=== PATIENT | female | born 1995 | race American Indian/Alaskan Native ===

== ENCOUNTER 2023-06-26 14:08 | Emergency (ER) | payer SELFPAY ==
[2023-06-26 14:22] VITALS: BP 156/60; PULSE 66; RESP 20; TEMP 36.7; O2SAT 100; BMI 46.7
--- NOTE | 2023-06-26 14:23 | ED.GENADULT ---
HPI - General Adult General Chief complaint: Abdominal Pain Stated complaint: hernia abd pain Time Seen by Provider: 06/26/23 17:46 Source: patient Mode of arrival: ambulatory Limitations: no limitations History of Present Illness HPI narrative: 28-year-old female presents emergency department with recurrent abdominal pain. Patient moved here from [place] a few months back has had multiple hernia for years and she feels like it is getting a bit larger. She does not have a surgeon here she states she does not have insurance she denies fevers chills cough she is eating and drinking normally. Related Data Allergies Allergy/AdvReac Type Severity Reaction Status Date / Time amphetamine [From Adderall] AdvReac Headache Verified 06/26/23 14:25 aspirin [ASA] AdvReac Unknown Verified 06/26/23 14:25 dextroamphetamine AdvReac Headache Verified 06/26/23 14:25 [From Adderall] Review of Systems Review of Systems: Review of systems: General: Patient denies any fever chills recent illness or falls Musculoskeletal: Denies back pain or body aches or other injuries HEENT: denies headache, runny nose, ear pain Respiratory: denies shortness of breath, cough Cardiovascular: no chest pain or palpitations : denies dysuria, frequency Abdomen: no nausea vomiting she does have intermittent abdominal pain Extremities: no swelling, no pain Skin: no diaphoresis Yes all other systems are reviewed and are negative PMFSH Social History Social History Advance Directives: No Advance Directives Information Provided: No Physical Exam ED Vital Signs: Vital Signs - 24 hr 06/26/23 14:22 Temperature 98.1 F Pulse Rate 66 Respiratory Rate 20 Blood Pressure 156/60 H Pulse Oximetry 100 Oxygen Delivery Method Room Air BMI result Body Mass Index 46.7 General: Well-appearing well-nourished in no signs of distress HEENT: Normocephalic atraumatic Neck: No signs of JVD, no masses no tenderness or lymphadenopathy Cardiovascular: Regular rate and rhythm Respiratory: Clear to auscultation bilaterally Abdomen: Soft nontender no masses hernia is reducible Extremities: Normal pedal pulses no signs of edema Skin: Dry warm no rashes Back: No tenderness full ROM Course Course Course Narrative: Patient comes with 2 complaints, 1st complaint is a reducible hernia in her umbilicus which is getting larger and larger and she is able to reduce it but is very uncomfortable and it pops right back out, next complaint is some feeling of nausea and dyspepsia which happens frequently and resolves on its own, she is not vomiting no diarrhea no fever Lab sent This is rapid medical exam in triage pending full evaluation by provider in the ER for full history and physical, review of all results and dispo Medical Decision Making Medical Decision Making [facility] Narrative: Is eating drinking as normal vitals and the hernia is easily reducible I will give the patient outpatient follow-up with surgery. Patient has had this for 4 years I do not think this is anything life threatening I feel comfortable discharging home. Differential Diagnosis Differential Diagnoses: The differential diagnosis associated with the presentation includes Reducible hernia abdominal pain bowel obstruction Lab Data [facility] Lab Attestation statement: I reviewed the patient's lab results. 06/26/23 14:34 06/26/23 14:34 Labs: Lab Results 06/26/23 Range/Units 14:34 WBC 8.3 (4.8-10.8) X10*3/uL RBC 4.49 (4.20-5.50) X10*6/uL Hgb 12.5 (12.0-16.0) g/dl Hct 38.6 (37.0-47.0) % MCV 86.0 (80.0-98.0) fL MCH 27.8 (27.0-33.0) pg MCHC 32.4 (31.0-35.0) g/dl RDW 13.1 (11.0-16.0) % Plt Count 340 (160-400) X10*3/uL MPV 9.2 L (9.4-12.3) fL Immature Gran % (Auto) 0.4 (0.0-0.4) % Neut % (Auto) 61.2 (45-73) % Lymph % (Auto) 29.9 (20-40) % [place] % (Auto) 6.0 (2-11) % Eos % (Auto) 1.7 (0-4) % Baso % (Auto) 0.8 (0-2) % Lymph # (Auto) 2.5 (1.2-4.9) X10*3/uL [place] # (Auto) 0.5 (0.1-1.2) X10*3/uL Eos # (Auto) 0.1 (0.0-0.4) X10*3/uL Baso # (Auto) 0.1 (0.0-0.2) X10*3/uL Abs Immat Gran (auto) 0.03 (0.00-0.03) X10*3/uL Absolute Neuts (auto) 5.1 (2.0-8.3) x10*3/uL Absolute Nucleated RBC 0.000 (0.0-0.012) X10*3/uL Nucleated RBC % (auto) 0.0 (0.0-0.2) /100WBC Sodium 140 (135-145) mmol/L Potassium 3.7 (3.3-5.1) mmol/L Chloride 109 H (96-108) mmol/L Carbon Dioxide 26 (22-29) mmol/L Anion Gap 9 L (12-20) BUN 13 (9-16) mg/dL Creatinine 0.66 (0.5-1.4) mg/dL Estim Creat Clear Calc 153.0 Estimated GFR > 60 Random Glucose 88 (60-115) mg/dL Calcium 9.2 (8.4-10.2) mg/dL Total Bilirubin 0.4 (0.0-1.0) mg/dL Direct Bilirubin 0.2 (0.0-0.5) mg/dL AST 20 (5-31) U/L ALT 15 (0-31) U/L Alkaline Phosphatase 44 (39-117) U/L Total Protein 7.4 (6.5-8.0) g/dL Albumin 4.0 (3.5-5.0) g/dL Lipase 19 (8-78) U/L Urine Color Yellow Urine Appearance Clear Urine pH 7.0 (5.0-9.0) Ur Specific [employer] Mdl 1.020 (1.005-1.025) Urine Protein Negative (Neg-Trace) mg/dL Urine Glucose (UA) Negative (Negative) mg/dL Urine Ketones Negative (Negative) mg/dL Urine Blood Trace H (Negative) Urine Nitrite Negative (Negative) Ur Leukocyte Esterase Negative (Negative) Urine RBC 0-2 (0-2) /HPF Urine WBC 0-5 (0-5) /HPF Ur Squamous Epith Cells 0-2 (0-2) /HPF Urine Bacteria None Seen (None Seen) Hyaline Casts 0-2 (0-2) /LPF Urine Test NEGATIVE (NEGATIVE) Discharge Plan Discharge Clinical Impression: Hernia, umbilical Patient Disposition: Home, Self-Care Instructions: Umbilical Hernia (ED) Referrals: Janes Hager MD [Physician] - (Is seen today for your hernia. You had labs drawn remarkable. Please call follow-up.)
[2023-06-26 14:39] LABS: MANUAL DIFF FLAG NO
[2023-06-26 14:42] LABS: Appearance Urine Clear; Basophils Absolute Auto 0.1 X10*3/uL (0.0-0.2); Basophils Percent Auto 0.8 % (0-2); Color Urine Yellow; Eosinophils Absolute Auto 0.1 X10*3/uL (0.0-0.4); Eosinophils Percent Auto 1.7 % (0-4); Glucose Urine UA Negative (Negative); Hematocrit 38.6 % (37.0-47.0); Hemoglobin 12.5 g/dl (12.0-16.0); Imm Gran Abs Auto 0.03 X10*3/uL (0.00-0.03); Imm Gran Pct Auto 0.4 % (0.0-0.4); Leukocyte Esterase Urine Negative (Negative); Lymphocytes Absolute Auto 2.5 X10*3/uL (1.2-4.9); Lymphocytes Percent Auto 29.9 % (20-40); Mean Corpuscular HGB Conc 32.4 g/dl (31.0-35.0); Mean Corpuscular Hemoglobin 27.8 pg (27.0-33.0); Mean Platelet Volume 9.2 fL (9.4-12.3); Monocytes Absolute Auto 0.5 X10*3/uL (0.1-1.2); Neutrophils Absolute Auto 5.1 x10*3/uL (2.0-8.3); Neutrophils Percent Auto 61.2 % (45-73); Nitrite Urine Negative (Negative); Platelet Count 340 X10*3/uL (160-400); Red Blood Count 4.49 X10*6/uL (4.20-5.50); Red Cell Distribution Width 13.1 % (11.0-16.0); UMIC TRIGGER UACC YES; Urine Blood Trace (Negative); Urine Ketones Negative (Negative); Urine Protein Negative (Neg-Trace); White Blood Count 8.3 X10*3/uL (4.8-10.8)
[2023-06-26 14:44] LABS: Bacteria Urine None Seen (None Seen); Hyaline Casts Urine 0-2 /LPF (0-2); RBC Urine 0-2 /HPF (0-2); Squamous Epithelial Cell Urine 0-2 /HPF (0-2); UPreg QC Valid YES; Urine Pregnancy NEGATIVE (NEGATIVE); WBC Urine 0-5 /HPF (0-5)
[2023-06-26 14:55] LABS: Alanine Aminotransferase 15 U/L (0-31); Alkaline Phosphatase 44 U/L (39-117); Anion Gap 9 (12-20); Aspartate Amino Transferase 20 U/L (5-31); Bilirubin Direct 0.2 mg/dL (0.0-0.5); Bilirubin Total 0.4 mg/dL (0.0-1.0); Blood Urea Nitrogen 13 mg/dL (9-16); Calcium 9.2 mg/dL (8.4-10.2); Carbon Dioxide 26 mmol/L (22-29); Chloride 109 mmol/L (96-108); Estimated Glomerular Filt Rate > 60; Glucose Random 88 mg/dL (60-115); Lipase 19 U/L (8-78); Potassium 3.7 mmol/L (3.3-5.1); Sodium 140 mmol/L (135-145); Total Protein 7.4 g/dL (6.5-8.0)
== END 2023-06-26 18:29 | disposition home or self-care (01) ==
PROVIDERS: Physician Assistant Medical; Emergency Provider Student in an Organized Health Care Education/Training Program
DX: K42.9 Umbilical hernia without obstruction or gangrene (principal); Z79.899 Other long term (current) drug therapy
CPT/HCPCS: 36415; 80048; 80076; 81001; 81025; 83690; 85025; 99282; 99283

== ENCOUNTER 2023-10-02 10:44 | Outpatient (AMB) | payer OTHER, SELFPAY ==
--- NOTE | 2023-10-02 11:00 | MHC.OFFVIS ---
Intake Vital Signs 10/02/23 11:06 Height 5 ft 2 in Weight 268 lb BMI 49.0 BP 136/74 Blood Pressure Location Lt brachial Position Sitting Pulse 66 Intake Visit Reasons: umbilical henia Intake Note: Patient is seen in office for ER follow up visit, following umbilical hernia. Pt c/o: onset few yrs, has increase in size, hard to the touch, reducible, nausea, vomit, denies diarrhea or constipation, no imaging done ER:06/26/23 Rn Critical Care Required: No Accompanied by: Other Relationship Allergies amphetamine [From Adderall] Adverse Reaction (Verified 10/02/23 11:02) Headache aspirin [ASA] Adverse Reaction (Verified 10/02/23 11:02) Unknown dextroamphetamine [From Adderall] Adverse Reaction (Verified 10/02/23 11:02) Headache HPI HPI Comments History of Present Illness Details 28-year-old female patient presenting with her with complaints of an umbilical hernia. She was seen in the emergency department recently with increased abdominal pain and found to have a reducible umbilical hernia. She reports that the pain has been increasing over the past 4 years and this is been affecting her mental health. She is also gaining weight because she is unable to exercise. 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 She reports nausea, vomiting, but denies fever or chills. She denies previous abdominal surgeries. [facility] Medical History (Updated 10/02/23 @ 11:18 by Paco Maher MD) Hernia, umbilical Family History Maternal Grandfather Pancreatic cancer, Onset Age: 58 Maternal Aunt Breast cancer, Onset Age: 58 Social History Alcohol intake: never Patient Tobacco Use Status: Former Tobacco user Review of Systems Const All systems reviewed & are unremarkable except as noted in HPI and below Denies chills, Denies fever(s), Denies headache(s), Denies poor appetite and Denies weakness ENT Denies headache(s) Card Denies chest pain, Denies irregular heart rhythm, Denies palpitations and Denies dyspnea Resp Denies cough, Denies excessive phlegm production and Denies dyspnea GI Reports abdominal pain, Denies bloating, Denies change in bowel habits, Denies constipation, Denies heartburn, Denies diarrhea, Reports nausea and Reports vomiting Denies urinary frequency Musc Denies back pain, Denies muscle weakness and Denies numbness Skin/Breast Denies changing lesions and Denies unusual bruising Neuro Denies headache(s), Denies numbness, Denies paresthesias and Denies weakness Psych Denies anxiety and Denies depression Endo Denies palpitations Shaggy/Lymph Denies lymphadenopathy Physical Exam Const General: cooperative and no acute distress Nutritional Appearance: well nourished Orientation/consciousness: patient oriented x3 Limitations: no limitations HEENT Head: Yes normocephalic and Yes atraumatic Ears: hearing grossly normal bilaterally Resp Effort & Inspection: normal respiratory effort, no audible wheezes, no cough and no respiratory distress Cardio Jugular venous distension: no JVD GI Inspection: Yes normal to inspection and Yes obesity Palpation (GI): Soft to palpation, nontender, no guarding, not rigid and Hernia present umbilical (Reducible, 2 cm diameter.) Skin Other: Warm, dry, no rash Neuro General: patient oriented x3 Extrem General: Yes no clubbing, cyanosis or edema Assessment & Plan Assessment & Plan (1) Hernia, umbilical: Code(s): K42.9 - Umbilical hernia without obstruction or gangrene Qualifiers: Obstruction and gangrene presence: without obstruction or gangrene Qualified Code(s): K42.9 - Umbilical hernia without obstruction or gangrene Plan 28-year-old female patient presenting with a reducible umbilical hernia, 2 cm diameter causing increased discomfort, nausea and vomiting. Hernias confirmed on physical examination. I recommended repair of this umbilical hernia with mesh and after discussion of the procedure, risks, and alternatives, she consents to the surgery. She will be scheduled as a short-stay surgery at her earliest convenience. Coding Level of Care Code New Pt Level 4 (54040) Diagnoses Umbilical hernia without obstruction and without gangrene K42.9 Obstruction and gangrene presence: without obstruction or gangrene
[2023-10-02 11:06] VITALS: BP 136/74; PULSE 66; BMI 49.0
== END 2023-10-02 11:31 | disposition home or self-care (01) ==
PROVIDERS: Visit Provider Surgery
DX: K42.9 Umbilical hernia without obstruction or gangrene (principal)
CPT/HCPCS: 99204

== ENCOUNTER → 2023-10-02 10:44 | Outpatient (BNVA) | payer SELFPAY | PROVIDERS: Visit Provider Surgery ==

== ENCOUNTER 2023-10-08 05:52 | Day surgery (SDC) | payer OTHER, SELFPAY ==
--- NOTE | 2023-10-07 08:46 | HO.ANESPROP2 ---
HPI - Anesthesia Eval Consult details Narrative: 28yo F for Repair Hernia Umbilical Reducible with Mesh PMFSH Active Problems Active Problems: All Active Problems (Updated 10/02/23 @ 11:18 by Paco Maher MD) Hernia, umbilical (Acute) Psoriatic arthritis (Acute) Past Medical History Medical History (Updated 10/02/23 @ 11:18 by Paco Maher MD) Hernia, umbilical Family History Family History Maternal Grandfather Pancreatic cancer, Onset Age: 58 Maternal Aunt Breast cancer, Onset Age: 58 Social History Social History Alcohol intake: never Patient Tobacco Use Status: Former Tobacco user Meds Allergies Allergy/AdvReac Type Severity Reaction Status Date / Time amphetamine [From Adderall] AdvReac Headache Verified 10/02/23 11:02 aspirin [ASA] AdvReac Unknown Verified 10/02/23 11:02 dextroamphetamine AdvReac Headache Verified 10/02/23 11:02 [From Adderall] Home Medications Medication Instructions Recorded Confirmed Last Taken Type No Known Home Meds 10/02/23 10/02/23 Unknown History Exam Pertinent Lab Results Pertinent Lab Results: Laboratory Tests 06/26/23 14:34 WBC 8.3 Hgb 12.5 Hct 38.6 Plt Count 340 Sodium 140 Potassium 3.7 Chloride 109 H Carbon Dioxide 26 BUN 13 Creatinine 0.66
[2023-10-08] VITALS (8 sets, daily range): BP systolic 112–128; BP diastolic 60–92; PULSE 61–73; RESP 20; TEMP 36.4–36.6; O2SAT 95–100; BMI 48.5
[2023-10-08 06:07] LABS: UPreg QC Valid YES; Urine Pregnancy NEGATIVE (NEGATIVE)
[2023-10-08] MEDS: Lactated Ringers 1,000 ML 100 ML IVCONT (06:23)
--- NOTE | 2023-10-08 07:19 | MHC.SHP ---
Pre-Procedural Eval Section A - 24 Hr Update-Section A only Date of Service: 10/08/23 The patient is an INPATIENT: No Changes since office visit: Yes Patient answered all questions; No Cold of Flu in the past 2 weeks, No New Medical Problems and No Changes in Medication The patient has been examined within 24 hours of the surgical procedure. The History & Physical has been completed within 30 days and I have reviewed it.: Yes Section B - Complete if H&P > 30 days Chief Complaint: Umbilical hernia without obstruction or gangrene Allergies: Allergies Allergy/AdvReac Type Severity Reaction Status Date / Time amphetamine [From Adderall] AdvReac Headache Verified 10/02/23 11:02 aspirin [ASA] AdvReac Unknown Verified 10/02/23 11:02 dextroamphetamine AdvReac Headache Verified 10/02/23 11:02 [From Adderall] Plan Diagnosis/Plan: Unchanged I have reviewed the history and physical and performed a pertinent physical examination on my patient. No changes have occurred unless specified. Time Spent With Patient Time: Total time managing care of this patient today ____ minutes.
--- NOTE | 2023-10-08 07:20 | P.CONAN_ITS ---
[facility] Active Problems Active Problems: All Active Problems (Updated 10/08/23 @ 06:11 by Julia Broussrad RN) Psoriatic arthritis (Acute) Hernia, umbilical (Acute) Past Medical History Medical History (Updated 10/08/23 @ 06:11 by Julia Broussard RN) Anxiety Hernia, umbilical Family History Family History Maternal Grandfather Pancreatic cancer, Onset Age: 58 Maternal Aunt Breast cancer, Onset Age: 58 Family history of problems with anesthesia: No Surgical History Surgical History (Updated 10/08/23 @ 06:11 by Julia Broussard RN) History of ankle surgery History of Problems with Anesthesia: No Social History Social History Alcohol intake: never Patient Tobacco Use Status: Former Tobacco user Tobacco use type: Smokeless Tobacco Years Smoked: 10/08 Are you DNR?: No Advance Directives: No Advance Directives Information Provided: Yes Recently lost weight without trying: No Meds Allergies Allergy/AdvReac Type Severity Reaction Status Date / Time amphetamine [From Adderall] AdvReac Headache Verified 10/02/23 11:02 aspirin [ASA] AdvReac Unknown Verified 10/02/23 11:02 dextroamphetamine AdvReac Headache Verified 10/02/23 11:02 [From Adderall] Active Medications: Current Medications Lactated Ringer's (Lr) 1,000 mls @ 100 mls/hr IVCONT .Q10H SUZIE Last Admin: 10/08/23 06:23 Dose: 100 mls/hr Home Medications Medication Instructions Recorded Confirmed Last Taken Type No Known Home Meds 10/02/23 10/02/23 Unknown History Exam Height,Weight and Vital Signs: Height 5 ft 2 in Weight 120.338 kg Last Vital Signs Temp 98 F 10/08/23 06:09 Pulse 73 10/08/23 06:09 Resp 20 10/08/23 06:09 BP 128/62 10/08/23 06:09 Pulse Ox 97 10/08/23 06:09 O2 Del Method Room Air 10/08/23 06:09 Pertinent Lab Results Pertinent Lab Results: Laboratory Tests 10/08/23 06:01 Urine Test NEGATIVE Airway Mallampati Class: II TM Dist: >3cm Neck ROM: Full Heart: rrr Lungs: clear Assessment and Plan Final Anesthetic Review Family History of Problems with Anesthesia: No History of Problems with Anesthesia: No NPO: Yes ASA Class: II Final Preanesthetic Review: No Changes in Pt Med Stat, Meds/Allgs Chart Reviewed, Consent Obtained/Reviewed and Anes Risks/Benef Reviewed Patient Risk: Intermediate Procedure Risk: Low Anesthetic Plan Anesthetic Plan: GA Disposition: Standard PACU
--- NOTE | 2023-10-08 08:35 | W.PM.OPN ---
Operative Note Operative Note Date of Service: 10/08/23 Narrative: Preoperative diagnosis: Umbilical hernia, reducible Postoperative diagnosis: Same Procedure: Repair of reducible umbilical hernia with mesh Surgeon: Paco Maher MD [employer] Hand: Mary Mathew PA-C, EMELY Wetzel Anesthesia: General endotracheal Indications for procedure: 28-year-old presenting with a painful umbilical hernia Operative findings: 2 cm fascial defect, reducible umbilical hernia Specimen: None Estimated blood loss: 2 mL Complications: None Procedure details: Patient was brought to the OR and placed in a supine position. After administering general anesthesia the patient's abdomen was prepped with ChloraPrep and draped in a sterile fashion. A surgical time-out was called the consent confirmed. Patient received preoperative antibiotics and Venodyne boots were in place. Local anesthesia was infiltrated around the umbilicus. A curvilinear incision was made in a transverse fashion above the umbilicus. This was carried out through subcutaneous tissue up to the hernia sac. The umbilical skin was lifted off the fascia using electrocautery. The hernia sac was then dissected down to the fascia circumferentially and the contents reduced into the abdominal cavity. A preperitoneal space was then created with electrocautery and sharp dissection. Hemostasis was assured using electrocautery. The fascial defect measured approximately 2 cm in diameter. A 6.4 cm round Ventralex mesh was then obtained. Deployed into the abdominal preperitoneal space using a parachute method in 4 quadrants with 0 Tycron sutures. The fascia was then closed over the mesh incorporating the mesh in the closure using [id number] Tycron sutures. Wounds were then irrigated with saline solution and suctioned dry. Hemostasis was assured. Umbilical skin was then reattached to the fascia using a 3-0 Polysorb suture. Dermis was reapproximated using interrupted 3-0 Polysorb sutures. Skin was closed using a running subcuticular 4-0 Polysorb suture. Steri-Strips, 4 x 4 gauze and Tegaderm were then applied. The patient tolerated the procedure well. Sponge, instrument, and needle counts reported as correct. The patient was transferred to PACU in stable condition.
[2023-10-08] MEDS: fentaNYL citrate/PF 100 MCG/2 ML VIAL 25 MCG IVPUSH ×2 (09:10→09:20)
[2023-10-08] MEDS: oxyCODONE HCl Immed Release 5 MG TABLET PO (09:10)
== END 2023-10-08 11:03 | disposition home or self-care (01) ==
PROVIDERS: Nurse Practitioner; Visit Provider Surgery
PROC: (CPT 49591; principal; 2023-10-08 07:30)
DX: K42.9 Umbilical hernia without obstruction or gangrene (principal); Z88.8 Allergy status to other drugs, medicaments and biological substances; Z87.891 Personal history of nicotine dependence
CPT/HCPCS: 49591; 81025; C1781; J0131; J0330; J0665; J0690; J1100; J2250; J2405; J2704; J3010

== ENCOUNTER → 2023-10-08 05:52 | Outpatient (BNV) | payer OTHER, SELFPAY | PROVIDERS: Visit Provider Surgery | DX: K42.9 Umbilical hernia without obstruction or gangrene (principal) | CPT/HCPCS: 49591 ==

== ENCOUNTER 2023-10-17 11:36 | Outpatient (AMB) | payer OTHER, SELFPAY ==
--- NOTE | 2023-10-17 11:39 | A.OFFVIS_ITS ---
Intake Vital Signs 10/17/23 11:46 Weight 262 lb BP 142/82 H Blood Pressure Location Rt brachial Position Sitting Pulse 78 Intake Visit Reasons: S/p umbilical hernia repair Intake Note: This patient present for a post-op assessment status post umbilical hernia repair. Patient c/o; reports burning sensation left abdomen. 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 She reports some incisional soreness but denies nausea, vomiting, diarrhea or constipation. She denies any bleeding or discharge from the incision however the plastic dressing remains in place. [facility] Medical History Anxiety Hernia, umbilical Surgical History H/O umbilical hernia repair (10/08/23) History of ankle surgery Family History Maternal Grandfather Pancreatic cancer, Onset Age: 58 Maternal Aunt Breast cancer, Onset Age: 58 Social History Alcohol intake: never Patient Tobacco Use Status: Former Tobacco user Tobacco use type: Smokeless Tobacco Years Smoked: 0510/08 Physical Exam Vital Signs: Last Vital Signs Pulse 78 10/17/23 11:46 BP 142/82 H 10/17/23 11:46 Const General: comfortable Nutritional Appearance: well nourished Orientation/consciousness: patient oriented x3 Resp Effort & Inspection: normal respiratory effort GI Other: Incision in the umbilicus is clean, dry, and intact. Dressings were removed and wounds found to be well healed. No hernia noted with Valsalva maneuvers. Neuro General: patient oriented x3 Extrem Other: No edema Assessment & Plan Assessment & Plan (1) Hernia, umbilical: Code(s): K42.9 - Umbilical hernia without obstruction or gangrene Qualifiers: Obstruction and gangrene presence: without obstruction or gangrene Qualified Code(s): K42.9 - Umbilical hernia without obstruction or gangrene Plan 20-year-old female patient status post repair of an umbilical hernia with mesh. She tolerated the procedure well and her wounds are healing nicely. She should continue to avoid lifting greater than 10 lb for the next 4 weeks. I have asked her to return to the office at that time for wound check. She may return to work as of 10/20/2023 with no lifting greater than 10 lb. Coding Level of Care Code Global (76878) Diagnoses Umbilical hernia without obstruction and without gangrene K42.9 Obstruction and gangrene presence: without obstruction or gangrene
[2023-10-17 11:46] VITALS: BP 142/82; PULSE 78
== END 2023-10-17 11:57 | disposition home or self-care (01) ==
PROVIDERS: Visit Provider Surgery
DX: K42.9 Umbilical hernia without obstruction or gangrene (principal)
CPT/HCPCS: 99212

== ENCOUNTER → 2023-10-17 11:36 | Outpatient (BNVA) | payer OTHER, SELFPAY | PROVIDERS: Visit Provider Surgery ==

== ENCOUNTER 2023-11-13 13:15 | Outpatient (AMB) | payer OTHER, SELFPAY ==
--- NOTE | 2023-11-13 13:19 | A.OFFVIS_ITS ---
Intake Vital Signs 11/13/23 13:24 Height 5 ft 2 in Weight 261 lb BMI 47.7 BP 146/81 H Blood Pressure Location Lt brachial Position Sitting Pulse 68 Intake Visit Reasons: S/p umbilical hernia repair, 1 mo follow up Intake Note: Patient is seen in office for one month follow up visit, post umbilical hernia repair. Pt c/o: at times feels some stabbing in the area, mostly after working, out of breath at times, denies any other concerns Esthetician Required: No Accompanied by: Self / Same As Patient Allergies amphetamine [From Adderall] Adverse Reaction (Verified 11/13/23 13:26) Headache aspirin [ASA] Adverse Reaction (Verified 11/13/23 13:26) Unknown dextroamphetamine [From Adderall] Adverse Reaction (Verified 11/13/23 13:) Headache Medication List - Last Reconciled 11/13/23 by Paco Maher MD No Known Home Meds HPI HPI Comments History of Present Illness Details Patient returns 1 month following repair of her umbilical hernia with mesh. She tolerated the procedure well and her wounds are healing nicely. She occasionally has some sharp discomfort when doing heavy lifting but generally feels well. [facility] Medical History Anxiety Hernia, umbilical Surgical History H/O umbilical hernia repair (10/08/23) History of ankle surgery Family History Maternal Grandfather Pancreatic cancer, Onset Age: 58 Maternal Aunt Breast cancer, Onset Age: 58 Social History Alcohol intake: never Patient Tobacco Use Status: Former Tobacco user Tobacco use type: Smokeless Tobacco Years Smoked: 0510/08 Physical Exam Vital Signs: Last Vital Signs Pulse 68 11/13/23 13:24 BP 146/81 H 11/13/23 13:24 BMI result Body Mass Index 47.7 Const General: comfortable Nutritional Appearance: well nourished Orientation/consciousness: patient oriented x3 Resp Effort & Inspection: normal respiratory effort GI Other: Umbilical incision is clean, dry, and intact. No hernias noted with Valsalva maneuvers. Neuro General: patient oriented x3 Extrem Other: No edema Assessment & Plan Assessment & Plan (1) Hernia, umbilical: Code(s): K42.9 - Umbilical hernia without obstruction or gangrene Qualifiers: Obstruction and gangrene presence: without obstruction or gangrene Qualified Code(s): K42.9 - Umbilical hernia without obstruction or gangrene Plan Patient returns 1 month following repair of an umbilical hernia with mesh. She tolerated the procedure well the wounds are healing nicely. She may resume normal activity without restriction and should follow up as needed. Coding Level of Care Code Global (77670) Diagnoses Umbilical hernia without obstruction and without gangrene K42.9 Obstruction and gangrene presence: without obstruction or gangrene
[2023-11-13 13:24] VITALS: BP 146/81; PULSE 68; BMI 47.7
== END 2023-11-13 13:38 | disposition home or self-care (01) ==
PROVIDERS: Visit Provider Surgery
DX: K42.9 Umbilical hernia without obstruction or gangrene (principal)
CPT/HCPCS: 99212

== ENCOUNTER → 2023-11-13 13:15 | Outpatient (BNVA) | payer OTHER, SELFPAY | PROVIDERS: Visit Provider Surgery ==

== ENCOUNTER 2023-12-25 09:29 | Emergency (ER) | payer OTHER, SELFPAY ==
[2023-12-25 09:40] VITALS: BP 144/61; PULSE 58; RESP 16; O2SAT 98; BMI 47.7
--- NOTE | 2023-12-25 09:53 | ED.GENADULT ---
HPI - General Adult General Chief complaint: General Medical Stated complaint: control broken in half Time Seen by Provider: 12/25/23 09:52 Source: patient Mode of arrival: ambulatory Limitations: no limitations History of Present Illness HPI narrative: Patient is a 28-year-old female with history of psoriatic arthritis presenting to the emergency department requesting that her Nexplanon implant be removed from her left upper arm. States that she has noted that it has been broken for the past several months. States that it is uncomfortable, also complains that her periods are irregular and is tearful, requesting that it be removed immediately. Denies any chest pain, palpitations, dyspnea. She reports that she has been to [facility] and was told they could not remove it there and referred her to the emergency department. States she recently moved here and does not have an MARKING ROOM SUPERVISOR in this area. complaint: left upper arm pain Onset (ago): month(s) Location: left and upper extremity Severity: mild Pain Consistency: colicky Associated symptoms: denies other symptoms Treatments prior to arrival: none Related Data Home Medications ?Medication ?Instructions ?Recorded ?Confirmed No Known Home Meds 11/13/23 11/13/23 Allergies Allergy/AdvReac Type Severity Reaction Status Date / Time amphetamine [From Adderall] AdvReac Headache Verified 12/25/23 09:44 aspirin [ASA] AdvReac Unknown Verified 12/25/23 09:44 dextroamphetamine AdvReac Headache Verified 12/25/23 09:44 [From Adderall] Review of Systems Review of Systems: As per HPI. Yes all other systems are reviewed and are negative Constitutional: Constitutional: Reports as per HPI [facility] Past Medical History Medical History Anxiety Hernia, umbilical Surgical History H/O umbilical hernia repair (10/08/23) History of ankle surgery Family History Family History Maternal Grandfather Pancreatic cancer, Onset Age: 58 Maternal Aunt Breast cancer, Onset Age: 58 Social History Social History Alcohol intake: never Patient Tobacco Use Status: Former Tobacco user Tobacco use type: Smokeless Tobacco Years Smoked: 10/08 Advance Directives: No Physical Exam ED Vital Signs: Vital Signs - 24 hr 12/25/23 09:40 Pulse Rate 58 Respiratory Rate 16 Blood Pressure 144/61 H Pulse Oximetry 98 Oxygen Delivery Method Room Air BMI result Body Mass Index 47.7 Vital signs have been reviewed and appear to be correct. Blood pressure elevated. Heart rate normal. Respiratory rate normal. Temperature normal. Oxygen saturation normal. Const General: cooperative, healthy appearing and no acute distress Orientation/consciousness: oriented to person, oriented to place, oriented to time and patient oriented x3 Limitations: no limitations HENMT Head: Yes normocephalic and Yes atraumatic Ears: external ears normal General nose exam: Normal external nose present Face and sinus: Yes face symmetric Mouth: oropharynx normal and moist mucous membranes Throat: Yes uvula midline Eyes Pupils: Equal, round and reactive pupils present Neck Neck: Yes normal visual inspection and Yes supple Resp Effort & Inspection: normal respiratory effort and able to speak in complete sentences Auscultation: clear to auscultation bilaterally Cardio Rate: regular rate Rhythm: regular rhythm Heart sounds: S1 normal heart sound present and S2 normal heart sound present GI Palpation (GI): Soft to palpation and nontender Auscultation: normoactive bowel sounds General: Yes no CVA tenderness Back/Spine/Pelvis Back: no CVA tenderness Skin General skin exam: elasticity normal and turgor normal Neuro General: oriented to person, oriented to place, oriented to time, patient oriented x3, gait normal, tone normal, moves all extremities, Normal light touch and pain sensation, no focal motor deficits, CN's II-XI intact bilaterally and deep tendon reflexes 2+ bilaterally Cranial nerves: Yes Equal, round and reactive pupils present Cognition (Neuro): normal cognition Motor exam (neuro): 5/5 motor strength present throughout and Normal motor muscle tone present throughout Extrem General: Yes full ROM, Yes no pedal edema and Yes no calf tenderness Left upper extremity: shoulder/upper arm Details: inspection abnormal (no erythema), tenderness (in area of Nexplanon implant, medial upper arm), axillary nerve sensory function normal, normal ROM and foreign body (Nexplanon implant to medial mid upper arm, appears fractured when pressure applied); no swelling, no ecchymosis and no unsual warmth Psych Mental Status: mental status grossly normal Affect: normal affect Thought process: Normal thought process present Medical Decision Making Medical Decision Making [facility] Narrative: Patient is a 28-year-old female with history of psoriatic arthritis presenting to the emergency department requesting that her Nexplanon implant be removed from her left upper arm. On exam patient is awake, A+Ox3, VS WNL, afebrile, normal neurological exam without focal deficits, physical exam findings as above. Given reported symptoms and physical exam findings, initial differential includes damaged Nexplanon. Do not suspect abscess, cellulitis, DVT as physical exam reveals no erythema, swelling, warmth, and 2+ distal pulses present. Case discussed with Dr. Tinsley, MARKING ROOM SUPERVISOR, who recommends that patient follow up with [facility] MARKING ROOM SUPERVISOR. Patient will be referred there for removal and further management. Return precautions discussed at bedside. Patient verbalized understanding and plan. Differential Diagnosis Differential Diagnoses: The differential diagnosis associated with the presentation includes As per [facility] Consult Healthcare Provider Management of the patient was discussed with: Drencher (Dr. Tinsley) External Record Review External record reviewed: Inpatient record, Office record and Outpatient record Discharge Plan Discharge Clinical Impression: Left upper arm pain Patient Disposition: Home, Self-Care Additional Instructions: You were evaluated in the emergency department for left upper arm pain related to Nexplanon implant. This implant is not able to be removed in the emergency department. You are being referred to [facility] for further evaluation and management. Please call their office at to schedule an appointment. Return to the emergency department if you develop new redness, swelling, drainage from your arm, fever or any other concerning symptoms. Prescriptions: No Action No Known Home Meds Referrals: [facility] MARKING ROOM SUPERVISOR Group [Provider Group] Print Language: Burmese
[2023-12-25 10:22] VITALS: BP 144/61; PULSE 58; RESP 16; TEMP 36.5; O2SAT 98
--- NOTE | 2023-12-25 10:33 | P.CONOB_ITS ---
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 States that she has noted that it has been broken for the past several months. States that it is uncomfortable. Denies any other concerns. She reports that she has been to [facility] and was told they could not remove it there and referred her to the emergency department. States she recently moved here and does not have an OBSTETRICAL TECH in this area. cc:: CC: [facility] Past Medical History Medical History Anxiety Hernia, umbilical Family History Family History Maternal Grandfather Pancreatic cancer, Onset Age: 58 Maternal Aunt Breast cancer, Onset Age: 58 Surgical History Surgical History H/O umbilical hernia repair (10/08/23) History of ankle surgery Social History Social History Alcohol intake: never Patient Tobacco Use Status: Former Tobacco user Tobacco use type: Smokeless Tobacco Years Smoked: 0510/08 Advance Directives: No Meds Allergies Allergy/AdvReac Type Severity Reaction Status Date / Time amphetamine [From Adderall] AdvReac Headache Verified 12/25/23 09:44 aspirin [ASA] AdvReac Unknown Verified 12/25/23 09:44 dextroamphetamine AdvReac Headache Verified 12/25/23 09:44 [From Adderall] Home Medications ?Medication ?Instructions ?Recorded ?Confirmed ?Last Taken ?Type No Known Home Meds 11/13/23 11/13/23 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 Physical Exam Vitals Vital signs: Temp Pulse Resp BP Pulse Ox O2 Del Method 97.7 F 58 16 144/61 H 98 Room Air 12/25/23 10:22 12/25/23 10:22 12/25/23 10:22 12/25/23 10:22 12/25/23 10:12/25/23 10:22 BMI result Body Mass Index 47.7 Additional Comments: Reported by TAY Barkley in the emergency room as the following: Left upper extremity: shoulder/upper arm Details: inspection showed no erythema, mild tenderness (in area of Nexplanon implant, medial upper arm), axillary nerve sensory function normal, normal ROM and foreign body (Nexplanon implant to medial mid upper arm, appears fractured when pressure applied); no swelling, no ecchymosis and no unsual warmth Assessment and Plan (1) Evaluation for contraceptive implant: Status: Acute Since Nexplanon is fractured, recommended the following: Perform a test, instructions to be given to patient to use backup method for control, to come back to the emergency room in case of worsening of the pain, redness or fever, to follow-up as with [facility] for removal as soon as possible, a tertiary care center where more resources are available for removal, since I have sprue knocker with fragmented Nexplanon removal I spent a total of 20 minutes reviewing the chart, talking to the patient via video and documenting in the medical record.
== END 2023-12-25 10:22 | disposition home or self-care (01) ==
PROVIDERS: Emergency Provider Emergency Medicine
DX: M79.602 Pain in left arm (principal); Z30.017 Encounter for initial prescription of implantable subdermal contraceptive
CPT/HCPCS: 99282

== ENCOUNTER → 2023-12-25 09:52 | Outpatient (BNV) | payer OTHER, SELFPAY | PROVIDERS: Emergency Provider Emergency Medicine; Visit Provider Obstetrics & Gynecology | DX: Z30.017 Encounter for initial prescription of implantable subdermal contraceptive (principal) | CPT/HCPCS: 99283 ==

== ENCOUNTER 2025-06-13 13:01 | Emergency (ER) | payer MEDICAID, SELFPAY ==
--- OUTSIDE RECORDS SUMMARY | 2024-02-06 06:30 | XMS_ITS ---
Author Organization [facility] Address [address] [place] [address] Care Team Providers Care Manager Retail Store Name Role Phone YAJAIRA DE SANTIAGO Unavailable [phone] REASON FOR VISIT Annual Exam, IUD check Social History Sex Assigned At : Social History Observation Description Sex Assigned At Female Encounters Encounter Location Date Provider Diagnosis [address] [id number] YAJAIRA DE SANTIAGO Plan Of Treatment No Information Progress Notes * Elizabeth MISTRY ADOB: 1995 (30 yo F)Acc No.[id number]:02/06/2024 Progress Notes Patient: Otto clayElizabeth Carvalho Provider: Jennie DE SANTIAGO :1995 A ge:29 Y S ex:Female Date:02/06/2024 Address:[address] [place] [address] [id number] Subjective: * Chief Complaints: * A nnual Exam, IUD check * Electronic signature of EDDIE DE SANTIAGO CNM on 06/13/2025 at 04:28 PM EDT Sign off status: Pending * Provider: Jennie DE SANTIAGO Date: 0 02/06/2024 Generated for Michael allison/Meli/eTransmitting on: 1 04:28 PM EDT
--- NOTE | 2025-06-13 13:07 | ECG_ITS ---
Test Reason : CHEST PAIN Blood Pressure : */* mmHG Vent. Rate : 74 BPM Atrial Rate : 74 BPM P-R Int : 146 ms QRS Dur : 82 ms QT Int : 390 ms P-R-T Axes : 28 22 16 degrees QTcB Int : 432 ms Normal sinus rhythm Normal ECG No previous ECGs available Referred By: Generic ED Physician Electronically Signed By: MADDIE WALLER MD
[2025-06-13 13:08] VITALS: BP 140/100; PULSE 86; O2SAT 99
--- OUTSIDE RECORDS SUMMARY | 2025-06-13 16:27 | XMS_ITS | Patient Health Record ---
Author Organization [facility] Address [address] [place] [address] Support Name Relationship Address Phone Thomas Bejarano Emergency Contact Unknown Unava ilable Elizabeth Blackwell Guarantor Unknown Allergies Allergen (clinical drug ingredient) Drug/Non Drug Allergy documented on EMR Reaction Allergy Type Onset Date Status amphetamine aspartate / amphetamine sulfate / dextroamphetamine saccharate / dextroamphetamine sulfate Adderall Unknown Drug Allergy Ac tive aspirin Aspirin Unknown Drug Allergy Active Reason For Referral No Information Medications Medication SIG (Take, Route, Frequency, Duration) Notes Start Date End Date Status Liletta Active Social History Sex Assigned At : Social History Observation Description Sex Assigned At Female Social History HIV Risk Assessment Social Info Question Answer Notes Additional Questions Is an HIV Risk Assessment being c onducted? Yes Did you have a blood transfusion prior to 1985? No Do you have an unlicensed body piercing or tattoo? No Reproductive Life Plan: Social Info Question Answer Notes Reproductive Life Plan: Do you want to h ave children? No, I don't want to have children How sure are you that you will be able to use your control method without any problems? Very sure People's plans change. Is it possible you or your partner could ever decide to become ? No Human Trafficking: Social Info Question Answer Notes Human Trafficking Experienced: No PrEP for HIV: Social Info Question Answer Notes PrEP for HIV Is the client intere sted in beginning/continuing PrEP for HIV? No Sexual History: Social Info Question Answer Notes Sexual History: Sexual History Reviewed: Partner s, Practices, Protection/Past STIs Currently sexually active? Yes Sexually active with: Men Number of male partners 1 Clients Your sexual activities include: oral intercourse, vaginal intercourse Do you use condoms? Yes Condoms are used: occasionally Date of last unprotected intercourse: 02/15/2024 Number of partners in past 3 months: 1 Number of partners in past year: 1 Does your partner(s) currently have any STIs? No Counseling Provided: Social Info Question Answer Notes Counseling Provided Please indicate the length of time, in minutes, that counseling was provided. 7 Counseling Was Provided By: faisal Drugs/Alcohol: Social Info Question Answer Notes Drug/Alcohol Use Do you or have you used drugs? Yes, c urrently By what route are you taking drugs? Please check all that apply: Smoking Which drug(s) do you smoke? Marijuana When did you last use? Do you want to quit drugs? No Do you or have you used alcohol? Yes, currently Socially Have you ever had more than 4 (women) or 6 (men) drinks at one time in the past year? Yes Food Access: Social Info Question Answer Notes Food Access The Client's current access to food is Secure Food Access Relationships: Social Info Question Answer Notes Relationships Has the client experienced any of the following: Harmful Relationships Previous relationship, non current. Client received resources during last visit. Emotionally Yes Currently: No Physically: Yes Currently: No Sexually: Yes Currently No Housing Social Info Question Answer Notes Housing The client's current living situation is: stable housing Tobacco Use: Social Info Question Answer Notes Tobacco Use: Do you/have you used tobacco? Yes, in the past Per client she has not smoked vapes in about 4 days and will continue this path. When did you quit? Tobacco Smoking Status Former smoker Plan Of Treatment No Information Insurance Providers Payer Name Payer Address Payer Phone Subscriber Number Group Number Insured Name Patient Relationship to Insured Coverage Start Date Coverage End Date [employer] [id number] [place], [place] [id number] [employer] Self - patient is the insured Medical (General) History Medical History History ICD Code Weight concerns Mental health concerns Depression/anxiety Bipolar disorder Complex post-traumatic disorder psoriasis Nicotine use/Vape- attempting to quit as of 01/2024 Surgical History Surgery Date(Month/Year) hernia repair 09/2023 Hospitalization History Reason Date(Month/Year) childbirth
== END 2025-06-13 13:39 | disposition left against medical advice (07) ==
PROVIDERS: Emergency Provider Emergency Medicine
DX: R07.9 Chest pain, unspecified (principal); Z53.21 Procedure and treatment not carried out due to patient leaving prior to being seen by health care provider
CPT/HCPCS: 93005; 99281; 99282

== ENCOUNTER → 2025-06-13 13:07 | Outpatient (BNV) | payer OTHER, SELFPAY | PROVIDERS: Emergency Provider Emergency Medicine; Visit Provider Internal Medicine Cardiovascular Disease | DX: R07.9 Chest pain, unspecified (principal) | CPT/HCPCS: 93010 ==